=== PATIENT | female | born 1955 | race Two or more races ===

== ENCOUNTER 2024-11-24 09:38 | Emergency (ER) | payer OTHER ==
[~2024-11-24] VITALS: Ht 165.1 cm; Wt 77.1 kg
[~2024-11-24 09:38] MED LIST: TAMOXIFEN CITRA20 MG
[2024-11-24 09:43] VITALS: BP 137/77; O2SAT 97
[2024-11-24] MEDS ORDERED: COZAAR50 MG PO (09:46)
[2024-11-24] MEDS ORDERED: HYOSCYAMINE SULFATE 0.125 MG TAB.SUBL SL ONE (11:00)
[2024-11-24 11:30] LABS: HEMATOCRIT 41.5 % (36.0-45.00); HEMOGLOBIN 13.8 g/dL (12.0-15.00); MEAN CELL VOLUME 87.1 fL (80.00-100.00); MEAN CORPUSCULAR HEMOGLOBIN 28.9 pg (27.00-32.0); MEAN CORPUSCULAR HGB CONC 33.2 g/dl (32.0-36.0); PLATELET COUNT 220 K/uL (150-450); RED BLOOD COUNT 4.76 M/uL (4.00-6.00); RED CELL DISTRIBUTION WIDTH 14.5 % (11.5-14.5)
[2024-11-24 12:05] LABS: CALCIUM 9.1 mg/dL (8.5-10.1); CREATININE SERUM 0.7 mg/dL (0.55-1.02); GFR 82.49; POTASSIUM 4.37 mEq/L (3.5-5.1)
[2024-11-24 12:23] LABS: PH,URINE 6.5 (5.0-8.0); URINE APPEARANCE Clear; URINE BILIRRUBIN Negative (NEGATIVE); URINE BLOOD Negative; URINE COLOR Dark Yellow; URINE GLUCOSE Negative (NEGATIVE); URINE KETONE 15 (NEGATIVE); URINE LEUKOCYTE Negative; URINE NITRATE Negative; URINE PROTEIN Trace (NEGATIVE)
[2024-11-24 12:24] LABS: URINE BACTERIA 139.5 uL (0.0-1933); URINE EPITHELIAL CELLS 8.8 uL (0.0-38.8); URINE RBC 4.5 uL (0.0-20.8); URINE WBC 2.2 uL (0.0-23.2)
[2024-11-24] MEDS ORDERED: KETOROLAC TROMETHAMINE 30 MG VIAL IM ONE (19:30)
[2024-11-24] MEDS ORDERED: PEPCID AC20 MG PO (19:32)
[2024-11-24] MEDS ORDERED: PERCOGESIC EXT1 EACH PO (19:32)
[2024-11-24] MEDS ORDERED: AMOX-CLAV 875-1 EAC1 PO (19:32)
[2024-11-24] MEDS ORDERED: INTESTINEX680 M1 PO (19:32)
== END 2024-11-24 20:04 | disposition home or self-care (01) ==
LOC: ER 09:40
PROVIDERS: Emergency Medicine
DX: K57.32 Diverticulitis of large intestine without perforation or abscess without bleeding (principal); R10.9 Unspecified abdominal pain; I10 Essential (primary) hypertension; Z88.1 Allergy status to other antibiotic agents; Z88.5 Allergy status to narcotic agent; Z88.9 Allergy status to unspecified drugs, medicaments and biological substances
CPT/HCPCS: 36415; 74177; 96372; 99284; J1885; Q9965

== ENCOUNTER 2025-02-14 12:00 | Inpatient (IN) | payer OTHER ==
[~2025-02-14] VITALS: Ht 165.1 cm; Wt 68.0 kg
[~2025-02-14 12:00] MED LIST changes: +AMOX-CLAV 875-1 EAC1 PO; +COZAAR50 MG PO; +INTESTINEX680 M1 PO; +PEPCID AC20 MG PO; +PERCOGESIC EXT1 EACH PO
[2025-02-14 14:13] VITALS: BP 137/73
[2025-02-20] MEDS ORDERED: ERTAPENEM SODIUM 1,000 MG VIAL ONE (14:50)
[2025-02-20] MEDS ORDERED: LOSARTAN POTASS50 MG (16:03)
[2025-02-20] MEDS ORDERED: BUPIVACAINE HCL 30 ML VIAL IJ ONE (16:45)
[2025-02-20] MEDS ORDERED: LIDOCAINE HCL 1%/EPINEPHRINE 20ML VIAL IJ ONE (16:45)
[2025-02-20] MEDS ORDERED: SUGAMMADEX SODIUM 200 MG/2 ML VIAL IV ONE (17:42)
[2025-02-20] MEDS ORDERED: OxyCODONE HCL 5 MG TABLET (ROXICODONE) PO PRN (18:00)
[2025-02-20] MEDS ORDERED: ONDANSETRON HCL 2 MG/ML VIAL IV PRN (18:00)
[2025-02-20] MEDS ORDERED: MEPERIDINE HCL/PF 25 MG/ML VIAL IV PRN (18:00)
[2025-02-20] MEDS ORDERED: RINGERS SOLUTION,LACTATED 1,000 ML IV SCH (18:00)
[2025-02-20] MEDS ORDERED: MEPERIDINE HCL 25 MG/ML AMPUL IV ONE ×2 (18:35→19:35)
[2025-02-20] MEDS ORDERED: ACETAMINOPHEN 500 MG GEL..CAP PO SCH (20:00)
[2025-02-20] MEDS ORDERED: hydrALAZINE HCL 20 MG VIAL ONE (20:57)
[2025-02-20] MEDS ORDERED: CELECOXIB 200 MG CAPSULE PO SCH (21:00)
[2025-02-20] MEDS ORDERED: FAMOTIDINE/PF 20 MG/2 ML VIAL IV PUSH SCH (21:00)
[2025-02-20] MEDS ORDERED: SIMETHICONE 125 MG CAPSULE PO SCH (21:00)
[2025-02-20] MEDS ORDERED: CELECOXIB 200 MG CAPSULE PO ONE (21:50)
[2025-02-20] MEDS ORDERED: ACETAMINOPHEN 500 MG GEL..CAP PO ONE (21:50)
[2025-02-20] MEDS ORDERED: FAMOTIDINE/PF 20 MG/2 ML VIAL ONE (21:50)
[2025-02-20] MEDS ORDERED: SIMETHICONE 125 MG CAPSULE PO ONE (21:50)
[2025-02-20 22:17] VITALS: BP 150/70; O2SAT 95
[2025-02-20 23:22] LABS: HEMATOCRIT 41.3 % (36.0-45.00); HEMOGLOBIN 13.8 g/dL (12.0-15.00); MEAN CELL VOLUME 86.9 fL (80.00-100.00); MEAN CORPUSCULAR HGB CONC 33.4 g/dl (32.0-36.0); PLATELET COUNT 207 K/uL (150-450); RED BLOOD COUNT 4.76 M/uL (4.00-6.00); RED CELL DISTRIBUTION WIDTH 14.3 % (11.5-14.5)
[2025-02-21 00:55] VITALS: BP 126/67; O2SAT 96
[2025-02-21] MEDS ORDERED: METOCLOPRAMIDE HCL 5 MG/ML VIAL IV SCH (01:00)
[2025-02-21] MEDS ORDERED: GABAPENTIN 300 MG CAPSULE PO SCH (01:00)
[2025-02-21 06:45] LABS: HEMATOCRIT 40.3 % (36.0-45.00); HEMOGLOBIN 13.2 g/dL (12.0-15.00); MEAN CELL VOLUME 87.8 fL (80.00-100.00); MEAN CORPUSCULAR HEMOGLOBIN 28.8 pg (27.00-32.0); MEAN CORPUSCULAR HGB CONC 32.8 g/dl (32.0-36.0); PLATELET COUNT 211 K/uL (150-450); RED BLOOD COUNT 4.59 M/uL (4.00-6.00); RED CELL DISTRIBUTION WIDTH 14.1 % (11.5-14.5)
[2025-02-21 07:13] LABS: ALBUMIN 3.3 gm/dL (3.4-5.0); CALCIUM 8.8 mg/dL (8.5-10.1); CREATININE SERUM 0.53 mg/dL (0.55-1.02); GFR 113.72; MAGNESIUM 1.7 mg/dL (1.8-2.4); PHOSPHOROUS 2.7 mg/dL (2.5-4.9); POTASSIUM 4.84 mEq/L (3.5-5.1)
[2025-02-21 08:00] VITALS: BP 150/83; O2SAT 93
[2025-02-21] MEDS ORDERED: LACTOBACILLUS ACIDOPHILUS 1 CAP CAP PO SCH (09:00)
[2025-02-21] MEDS ORDERED: LOSARTAN POTASSIUM 50 MG TABLET PO SCH (09:00)
[2025-02-21] MEDS ORDERED: HYOSCYAMINE SULFATE 0.125 MG TAB.SUBL SL SCH (09:00)
[2025-02-21] MEDS ORDERED: ENALAPRILAT DIHYDRATE 1.25 MG/ML VIAL IV PRN (14:00)
[2025-02-21 15:30] VITALS: BP 100/54; O2SAT 99
[2025-02-21] MEDS ORDERED: POLYETHYLENE GLYCOL 3350 17 GM BLIST.PACK PO SCH (17:00)
[2025-02-21] MEDS ORDERED: ORPHENADRINE CITRATE 100 MG TABLET PO SCH (17:00)
[2025-02-21] MEDS ORDERED: ENOXAPARIN SODIUM 40 MG/0.4 ML SYRINGE SUBCUTANEO SCH (17:00)
[2025-02-22 00:13] VITALS: BP 117/56; O2SAT 97
[2025-02-22 05:20] VITALS: BP 130/64; O2SAT 95
[2025-02-22 08:00] VITALS: BP 140/78; O2SAT 94
[2025-02-22] MEDS ORDERED: ENOXAPARIN SODIUM 40 MG/0.4 ML SYRINGE SUBCUTANEO SCH (09:00)
[2025-02-22 09:42] LABS: HEMATOCRIT 40.9 % (36.0-45.00); HEMOGLOBIN 13.5 g/dL (12.0-15.00); MEAN CELL VOLUME 87.7 fL (80.00-100.00); MEAN CORPUSCULAR HGB CONC 33.1 g/dl (32.0-36.0); PLATELET COUNT 210 K/uL (150-450); RED BLOOD COUNT 4.66 M/uL (4.00-6.00); RED CELL DISTRIBUTION WIDTH 14.6 % (11.5-14.5)
[2025-02-22 17:19] VITALS: BP 133/74; O2SAT 99
[2025-02-22 23:55] VITALS: BP 130/73; O2SAT 96
[2025-02-23 07:50] VITALS: BP 137/79; O2SAT 95
[2025-02-23] MEDS ORDERED: INTESTINEX680 M1 PO (08:04)
[2025-02-23] MEDS ORDERED: LEVSIN/SL0.125 MG SL (08:04)
[2025-02-23] MEDS ORDERED: GAS RELIEF125 MG PO (08:05)
[2025-02-23] MEDS ORDERED: CELECOXIB200 MG PO (08:05)
[2025-02-23] MEDS ORDERED: METOPROLOL TARTRATE 25 MG TABLET PO SCH (09:00)
== END 2025-02-23 12:59 | disposition home or self-care (01) | DRG 331 ==
LOC: O/R 02-20 08:30 → SURG 02-20 08:30 → SURH 02-20 10:45 → SURG 02-20 19:10
PROVIDERS: ADMIT Surgery; ATTEND Surgery
PROC: 0DJD8ZZ Inspection of Lower Intestinal Tract, Via Natural or Artificial Opening Endoscopic (ICD-10-PCS; 2025-02-20)
PROC: 0DBP4ZZ Excision of Rectum, Percutaneous Endoscopic Approach (ICD-10-PCS; 2025-02-20)
PROC: 0DTN4ZZ Resection of Sigmoid Colon, Percutaneous Endoscopic Approach (ICD-10-PCS; principal; 2025-02-20 10:45)
PROC: 4A12X4Z Monitoring of Cardiac Electrical Activity, External Approach (ICD-10-PCS; 2025-02-22)
DX: K57.32 Diverticulitis of large intestine without perforation or abscess without bleeding (principal); R19.4 Change in bowel habit; I10 Essential (primary) hypertension